=== PATIENT | male | born 1955 | race Hispanic/Latino ===

== ENCOUNTER 2022-11-06 13:36 | Emergency (ER) | payer OTHER ==
[2022-11-06 15:26] VITALS: BP 142/81
== END 2022-11-06 15:27 | DRG 566 ==
LOC: ED 13:36
DX: S66.922A Laceration of unspecified muscle, fascia and tendon at wrist and hand level, left hand, initial encounter (principal); S61.412A Laceration without foreign body of left hand, initial encounter; W27.8XXA Contact with other nonpowered hand tool, initial encounter; Y93.89 Activity, other specified; Y99.0 Civilian activity done for income or pay